=== PATIENT | female | born 1990 | race Two or more races ===

== ENCOUNTER 2018-08-27 22:01 | Emergency (ER) | payer SELFPAY ==
[~2018-08-27] VITALS: Ht 165.1 cm; Wt 127.4 kg
[2018-08-27 23:17] LABS: BASOPHILS # (AUTO) 0.04 x10^3/uL (0-0.1); BASOPHILS % (AUTO) 1 % (0-1); EOSINOPHILS % (AUTO) 5 % (1-7); LYMPHOCYTES % (AUTO) 33 % (22-44); MD NO; MEAN CORPUSCULAR HEMOGLOBIN 28.9 pg (27.0-34.8); MEAN CORPUSCULAR HGB CONC 33.8 g/dL (32.4-35.8); MEAN CORPUSCULAR VOLUME 85.4 fL (80-100); MEAN PLATELET VOLUME 9.6 fL (7.4-10.4); MONOCYTES # (AUTO) 0.33 x10^3/uL (0.2-0.8); MONOCYTES % (AUTO) 4 % (2-9); NEUTROPHILS % (AUTO) 58 % (42-75); PLATELET COUNT 215 x10^3/uL (130-400); RED BLOOD COUNT 4.63 x10^6/uL (3.82-5.3)
[2018-08-27 23:30] LABS: ALANINE AMINOTRANSFERASE 30 U/L (12-78); ALBUMIN 3.9 g/dL (3.4-5.0); ANION GAP 4 mmol/L (5-15); CALCIUM 8.7 mg/dL (8.5-10.1); CHLORIDE 112 mmol/L (98-107); CREATININE 0.82 mg/dL (0.55-1.02)
[2018-08-27 23:34] LABS: ALKALINE PHOSPHATASE 76 U/L (45-117); BILIRUBIN,TOTAL 0.2 mg/dL (0.2-1.0); TOTAL PROTEIN 7.7 g/dL (6.4-8.2)
--- NOTE | 2018-08-27 23:36 | NUR ---
pt ambulated from lobby to room with steady gait.
[2018-08-27] MEDS ORDERED: KETOROLAC 30 MG/1 ML ONE (23:44)
[2018-08-27] MEDS ORDERED: ONDANSETRON ODT 4 MG ONE (23:44)
--- NOTE | 2018-08-27 23:50 | NUR ---
pt medicated per aug. pt hx and assessement performed at bs.
[2018-08-27 23:54] LABS: MICROSCOPIC NOT IND
[2018-08-27 23:58] LABS: CULTURE INDICATED? NO
[2018-08-28] MEDS ORDERED: ONDANSETRON ODT 4 MG PO ONE
[2018-08-28] MEDS ORDERED: KETOROLAC 60 MG/2 ML IM ONE
[2018-08-28] MEDS ORDERED: MAALOX/HYOSCYAMINE/LIDOCAINE 45 ML BTL PO ONE (01:00)
[2018-08-28] MEDS ORDERED: MAALOX/HYOSCYAMINE/LIDOCAINE 45 ML BTL ONE (01:27)
[2018-08-28] MEDS ORDERED: ACETAMINOPHEN 500 MG TABLET ONE (01:27)
[2018-08-28] MEDS ORDERED: AZITHROMYCIN 500 MG TABLET PO ONE (01:30)
[2018-08-28] MEDS ORDERED: ACETAMINOPHEN 500 MG TABLET PO ONE (01:30)
--- NOTE | 2018-08-28 01:37 | NUR ---
Ziggy peralta in EDM - 08/28/18 at 0137 by [email or web address] per count includes the [facility] nurse, pt had a witnessed seizure here. pt porfirioiend at with dr. mays.
--- NOTE | 2018-08-28 01:37 | NUR ---
pt medicated per mar for young and stomach pain. all questions answered on medications.
[2018-08-28 02:11] VITALS: BP 114/73
== END 2018-08-28 02:14 | disposition home or self-care (01) ==
LOC: ED 23:59
DX: K59.00 Constipation, unspecified (principal); J15.7 Pneumonia due to Mycoplasma pneumoniae
CPT/HCPCS: 36415; 74022; 80053; 81003; 84703; 85025; 93005; 96372; 99284; J1885; Q0162